=== PATIENT | male | born 1990 | race Caucasian/White ===

== ENCOUNTER 2022-02-06 22:06 | Emergency (ER) | payer SELFPAY ==
[~2022-02-06] VITALS: Ht 170.2 cm; Wt 70.5 kg
[2022-02-06] MEDS ORDERED: DEXAMETHASONE 4 MG TABLET PO ONE (22:30)
[2022-02-06 23:39] VITALS: BP 117/56
[2022-02-06] MEDS ORDERED: EPIN0.3P3 IM (23:45)
== END 2022-02-07 00:34 | disposition home or self-care (01) ==
LOC: EMS 22:17
DX: T78.1XXA Other adverse food reactions, not elsewhere classified, initial encounter (principal); Z91.013 Allergy to seafood; R21 Rash and other nonspecific skin eruption; X58.XXXA Exposure to other specified factors, initial encounter
CPT/HCPCS: 99282; J8540; Z7502